=== PATIENT | male | born 1975 | race Caucasian/White ===

== ENCOUNTER 2016-06-01 17:30 | Emergency (ER) | payer OTHER ==
[~2016-06-01] VITALS: Ht 177.8 cm; Wt 67.0 kg
[~2016-06-01 17:30] MED LIST: MOTRIN800 MG PO; PROVENTIL HFA6.7 GM IH; TESSALON PERLE100 MG PO; ZITHROMAX Z-PA250 MG PO
[2016-06-01] MEDS ORDERED: VENTOLIN HFA18 GM IH (18:22)
[2016-06-01] MEDS ORDERED: ZITHROMAX Z-PA250 MG PO (18:22)
[2016-06-01] MEDS ORDERED: PREDNISONE20 MG PO (18:22)
[2016-06-01 19:00] VITALS: BP 117/71
== END 2016-06-01 19:01 | disposition home or self-care (01) ==
LOC: EME 17:30
DX: J20.9 Acute bronchitis, unspecified (principal); F17.200 Nicotine dependence, unspecified, uncomplicated
CPT/HCPCS: 99281; 99283

== ENCOUNTER 2017-07-30 22:01 | Emergency (ER) | payer OTHER ==
[~2017-07-30] VITALS: Ht 180.3 cm; Wt 69.0 kg
[~2017-07-30 22:01] MED LIST changes: +PREDNISONE20 MG PO; +VENTOLIN HFA18 GM IH
[2017-07-30] MEDS ORDERED: AUGMENTIN875 MG PO (22:31)
[2017-07-30 22:50] VITALS: BP 122/87
== END 2017-07-30 22:50 | disposition home or self-care (01) ==
LOC: EME 22:01
PROC: 3E0234Z Introduction of Serum, Toxoid and Vaccine into Muscle, Percutaneous Approach (ICD-10-PCS; principal; 2017-07-30)
DX: S40.872A Other superficial bite of left upper arm, initial encounter (principal); S40.812A Abrasion of left upper arm, initial encounter; Y04.1XXA Assault by human bite, initial encounter; Y04.0XXA Assault by unarmed brawl or fight, initial encounter; Z23 Encounter for immunization; F17.200 Nicotine dependence, unspecified, uncomplicated
CPT/HCPCS: 99281; 99283